=== PATIENT | female | born 1990 | race Hispanic/Latino ===

== ENCOUNTER 2021-04-18 23:02 | Inpatient (IN) | payer MEDICAID, SELFPAY ==
[2021-04-19] MEDS ORDERED: hydrALAZINE 20 MG/ML VIAL SLOW IVP PRN (01:31)
[2021-04-19] MEDS ORDERED: Lorazepam 2 MG/ML VIAL SLOW IVP PRN (01:31)
[2021-04-19] MEDS ORDERED: Ondansetron PF 4 MG/2 ML Vial IVP PRN (01:31)
[2021-04-19] MEDS ORDERED: Promethazine HCl 25 MG/ML VIAL IM PRN ×2 (01:31→12:59)
[2021-04-19] MEDS ORDERED: traMADol HCl 50 MG TAB PO PRN (01:35)
[2021-04-19] MEDS ORDERED: Acetaminophen 325 MG TAB PO SCH (01:45)
[2021-04-19 02:16] VITALS: BMI 32.1
[2021-04-19] MEDS: Morphine 4 MG/ML VIAL SLOW IVP PRN ×2 (02:26→14:59)
[2021-04-19] MEDS: Sodium Chloride 0.9% 1,000 ML IV SCH ×3 (02:26→18:09)
[2021-04-19 02:28] LABS: Hemoglobin 11.8 g/dL (12.0-16.0); Mean Corpuscular HGB CONC 33.4 g/dL (32.0-36.0); Mean Corpuscular Hemoglobin 29.4 pg (27.0-31.0); Mean Corpuscular Volume 88.1 fL (78.0-98.0); Mean Platelet Volume 7.8 fL (7.4-10.4); Platelet Count 280 thou/uL (130-400); RBC Distribution Width 14.5 % (11.5-14.5); Red Blood Cell (RBC) Count 4.01 mill/uL (4.20-5.40); White Blood Cell (WBC) Count 13.4 thou/uL (4.8-10.8)
[2021-04-19 02:36] LABS: PTT 28.8 sec (22.9-36.1); Prothrombin Time 13.4 sec (12.0-14.7)
[2021-04-19] MEDS: Acetaminophen/Codeine 30-300mg Tablet PO SCH ×4 (02:41→20:05)
[2021-04-19] MEDS: Acetaminophen 325 MG TAB PO SCH ×4 (02:42→20:07)
[2021-04-19 02:50] LABS: Lactic Acid 0.8 mmol/L (0.5-2.2)
[2021-04-19 03:01] LABS: ALT (SGPT) 37 U/L (8-55); AST (SGOT) 15 U/L (5-34); Albumin 3.9 g/dL (3.5-5.0); Alkaline Phosphatase 140 U/L (40-110); Anion Gap 15 mmol/L (10-20); BUN (Urea Nitrogen) 11 mg/dL (7.0-18.7); Bilirubin, Total 0.3 mg/dL (0.2-1.2); CRP (Inflammatory) 1.98 mg/dL (= or < 0.5); Calc. Creatinine Clearance 165 mL/min (70-130); Calcium 10.3 mg/dL (7.8-10.44); Carbon Dioxide 21 mmol/L (22-29); Chloride 104 mmol/L (98-107); Globulin 3.6 g/dL (2.4-3.5); Glucose 107 mg/dL (70-105); Magnesium 1.8 mg/dL (1.6-2.6); Phosphorus 4.2 mg/dL (2.3-4.7); Potassium 3.4 mmol/L (3.5-5.1); Protein, Total 7.5 g/dL (6.0-8.3); Sodium 137 mmol/L (136-145)
[2021-04-19 03:37] LABS: Band 9 % (5-11); Eosinophils 2 % (0-10); Lymphocytes 14 % (21-51); MDiff Complete? YES; Monocytes 3 % (0-10); Neutrophil 71 % (42-75); Platelet Morphology Comment Appears Adequate; RBC Morphology Normal
[2021-04-19 04:22] LABS: SARS-CoV-2 NAA Rapid Test Not Detected (NotDetected)
[2021-04-19] MEDS ORDERED: traMADol HCl 50 MG TAB PO SCH (06:00)
[2021-04-19] MEDS: Saccharomyces boulardii 250 MG CAP PO SCH (09:33)
[2021-04-19] MEDS: Polyethylene Glycol 3350 17 GM Packet PO SCH (09:36)
[2021-04-19] MEDS: Senokot S 8.6-50 MG TAB PO SCH ×2 (09:36→20:06)
[2021-04-19] MEDS ORDERED: Potassium Phosphate 30 MMOL in Sodium Chloride 0.9% 250 ML 250 ML IVPB SCH (10:00)
[2021-04-19] MEDS ORDERED: Succinylcholine 200 MG/10 ml SYRINGE FS ONE (11:39)
[2021-04-19] MEDS ORDERED: Lidocaine 1% PF 5 ML VIAL ONE (11:39)
[2021-04-19] MEDS ORDERED: PROPOFOL 200 MG/20 ML VIAL ONE (11:39)
[2021-04-19] MEDS ORDERED: ePHEDrine 50 MG/ML VIAL ONE (11:39)
[2021-04-19] MEDS ORDERED: Heparin 1,000 UNITS/ML VIAL ONE (11:54)
[2021-04-19] MEDS ORDERED: Ondansetron HCl/PF 4 MG/2 ML Vial IVP PRN (12:59)
[2021-04-19] MEDS ORDERED: Promethazine HCl 25 MG/ML VIAL IVPB PRN (12:59)
[2021-04-19] MEDS ORDERED: HYDROmorphone 2 MG/ML VIAL SLOW IVP PRN (12:59)
[2021-04-19] MEDS ORDERED: Fentanyl 100 MCG/2 ML VIAL ONE (13:05)
[2021-04-19] MEDS ORDERED: HYDROmorphone 0.5 MG/0.5 ML SYRINGE ONE (13:16)
[2021-04-19] MEDS ORDERED: Piperacillin/Tazobactam 3.375 GM in Sodium Chloride 0.9% 100 ML IVPB SCH (14:58)
[2021-04-19] MEDS: Cyclobenzaprine 10 MG TAB PO PRN (17:52)
[2021-04-19] MEDS: Ibuprofen 600 MG TAB PO PRN (17:53)
[2021-04-20] MEDS: Cefepime 2 GM in Sodium Chloride 0.9% 100 ML IVPB SCH ×2 (00:44→11:35)
[2021-04-20] MEDS: Ibuprofen 600 MG TAB PO PRN (00:56)
[2021-04-20] MEDS: Vancomycin HCl 1.25 GM in Sodium Chloride 0.9% 250 ML 250 ML IVPB SCH ×2 (01:37→15:59)
[2021-04-20] MEDS: Acetaminophen/Codeine 30-300mg Tablet PO SCH ×4 (01:37→21:17)
[2021-04-20] MEDS: Acetaminophen 325 MG TAB PO SCH ×4 (01:40→21:03)
[2021-04-20] MEDS: Polyethylene Glycol 3350 17 GM Packet PO SCH ×2 (08:39→08:44)
[2021-04-20] MEDS: Saccharomyces boulardii 250 MG CAP PO SCH (08:39)
[2021-04-20] MEDS: Senokot S 8.6-50 MG TAB PO SCH ×2 (08:39→21:04)
[2021-04-20] MEDS ORDERED: Morphine 4 MG/ML VIAL SLOW IVP PRN (08:40)
[2021-04-20] MEDS: Gabapentin 300 MG CAP PO SCH ×3 (09:25→21:02)
[2021-04-20] MEDS: Ketorolac Tromethamine 30 MG/ML VIAL IVP PRN ×3 (11:35→19:16)
[2021-04-20] MEDS ORDERED: traMADol HCl 50 MG TAB PO PRN (14:12)
[2021-04-20] MEDS ORDERED: traMADol HCl 50 MG TAB PO SCH (18:00)
[2021-04-20 23:08] LABS: Vancomycin, Trough 8.2 ug/mL
[2021-04-21] MEDS: Cefepime 2 GM in Sodium Chloride 0.9% 100 ML IVPB SCH ×2 (00:17→19:18)
[2021-04-21] MEDS: Vancomycin HCl 1.25 GM in Sodium Chloride 0.9% 250 ML 250 ML IVPB SCH ×3 (00:26→17:26)
[2021-04-21] MEDS: Ketorolac Tromethamine 30 MG/ML VIAL IVP PRN (00:29)
[2021-04-21] MEDS: Cyclobenzaprine 10 MG TAB PO PRN (00:29)
[2021-04-21] MEDS: Acetaminophen/Codeine 30-300mg Tablet PO SCH ×4 (02:04→20:27)
[2021-04-21] MEDS: Acetaminophen 325 MG TAB PO SCH ×4 (02:04→20:26)
[2021-04-21] MEDS: Ibuprofen 200 MG TAB PO SCH ×3 (05:51→22:56)
[2021-04-21] MEDS: Polyethylene Glycol 3350 17 GM Packet PO SCH (08:17)
[2021-04-21] MEDS: Enoxaparin Sodium 40 MG/0.4 ML SYRINGE SC SCH (08:17)
[2021-04-21] MEDS: Senokot S 8.6-50 MG TAB PO SCH ×2 (08:17→20:28)
[2021-04-21] MEDS: Gabapentin 300 MG CAP PO SCH ×3 (10:08→20:28)
[2021-04-21] MEDS: Saccharomyces boulardii 250 MG CAP PO SCH (10:57)
[2021-04-21] MEDS ORDERED: Fentanyl 100 MCG/2 ML VIAL ONE ×3 (14:06→16:13)
[2021-04-21] MEDS ORDERED: Midazolam HCl 2 mg/2 ml Vial ONE ×2 (14:07→14:21)
[2021-04-21] MEDS ORDERED: Tobramycin Sulfate 1.2 GM VIAL ONE (14:16)
[2021-04-21] MEDS ORDERED: Ketorolac Tromethamine 30 MG/ML VIAL ONE (14:35)
[2021-04-21] MEDS ORDERED: PROPOFOL 200 MG/20 ML VIAL ONE (14:35)
[2021-04-21] MEDS ORDERED: Dexamethasone 20 MG/5 ML VIAL ONE (14:35)
[2021-04-21] MEDS ORDERED: ePHEDrine 50 MG/ML VIAL ONE (14:35)
[2021-04-21] MEDS ORDERED: Ondansetron PF 4 MG/2 ML Vial ONE (14:35)
[2021-04-21] MEDS ORDERED: Promethazine HCl 25 MG/ML VIAL IM PRN (16:22)
[2021-04-21] MEDS ORDERED: Promethazine HCl 25 MG/ML VIAL IVPB PRN (16:22)
[2021-04-21] MEDS ORDERED: HYDROmorphone 2 MG/ML VIAL SLOW IVP PRN (16:22)
[2021-04-21] MEDS ORDERED: Ondansetron HCl/PF 4 MG/2 ML Vial IVP PRN (16:22)
[2021-04-21] MEDS: Morphine 4 MG/ML VIAL SLOW IVP PRN ×2 (19:19→22:56)
[2021-04-22 00:03] LABS: Vancomycin, Trough 11.4 ug/mL
[2021-04-22] MEDS: Cefepime 2 GM in Sodium Chloride 0.9% 100 ML IVPB SCH ×3 (00:14→23:59)
[2021-04-22] MEDS: Vancomycin HCl 1.25 GM in Sodium Chloride 0.9% 250 ML 250 ML IVPB SCH ×4 (00:46→18:33)
[2021-04-22] MEDS: Acetaminophen/Codeine 30-300mg Tablet PO SCH ×4 (02:03→18:33)
[2021-04-22] MEDS: Acetaminophen 325 MG TAB PO SCH ×2 (02:03→08:35)
[2021-04-22] MEDS: Ibuprofen 200 MG TAB PO SCH ×3 (05:36→22:37)
[2021-04-22 05:53] LABS: #Lymphocytes 1.5 thou/uL (1.20-3.40); #Monocytes 0.5 thou/uL (0.11-0.59); #Neutrophils 6.7 thou/uL (1.40-6.50); %Basophils 0.2 % (0.0-1.0); %Eosinophils 0.5 % (0.0-10.0); %Lymphocytes 17.6 % (21.0-51.0); %Monocytes 5.7 % (0.0-10.0); %Neutrophils 76.1 % (42.0-75.0); Hemoglobin 8.8 g/dL (12.0-16.0); Mean Corpuscular HGB CONC 33.1 g/dL (32.0-36.0); Mean Corpuscular Hemoglobin 29.7 pg (27.0-31.0); Mean Corpuscular Volume 89.7 fL (78.0-98.0); Mean Platelet Volume 7.5 fL (7.4-10.4); Platelet Count 393 thou/uL (130-400); RBC Distribution Width 14.4 % (11.5-14.5); Red Blood Cell (RBC) Count 2.96 mill/uL (4.20-5.40); White Blood Cell (WBC) Count 8.7 thou/uL (4.8-10.8)
[2021-04-22 06:23] LABS: Anion Gap 12 mmol/L (10-20); BUN (Urea Nitrogen) 8 mg/dL (7.0-18.7); Calc. Creatinine Clearance 216 mL/min (70-130); Calcium 9.5 mg/dL (7.8-10.44); Carbon Dioxide 24 mmol/L (22-29); Chloride 104 mmol/L (98-107); Glucose 103 mg/dL (70-105); Magnesium 1.8 mg/dL (1.6-2.6); Phosphorus 3.2 mg/dL (2.3-4.7); Potassium 4.1 mmol/L (3.5-5.1); Sodium 136 mmol/L (136-145)
[2021-04-22] MEDS ORDERED: Magnesium Sulfate 3 GM in Sodium Chloride 0.9% 100 ML IV SCH (06:45)
[2021-04-22] MEDS: Saccharomyces boulardii 250 MG CAP PO SCH (08:33)
[2021-04-22] MEDS: Gabapentin 300 MG CAP PO SCH ×3 (08:34→20:38)
[2021-04-22] MEDS: Senokot S 8.6-50 MG TAB PO SCH ×2 (08:34→20:40)
[2021-04-22] MEDS: Polyethylene Glycol 3350 17 GM Packet PO SCH (08:35)
[2021-04-22] MEDS: Enoxaparin Sodium 40 MG/0.4 ML SYRINGE SC SCH (08:35)
[2021-04-22] MEDS ORDERED: FLU VACC QS2021-22(6MOS UP)/PF 60 MCG/0.5 ML SYRINGE IM ONE (09:00)
[2021-04-22] MEDS: Morphine 4 MG/ML VIAL SLOW IVP PRN ×2 (10:39→20:39)
[2021-04-22] MEDS: Cyclobenzaprine 10 MG TAB PO PRN (12:19)
[2021-04-22] MEDS ORDERED: Ketorolac Tromethamine 30 MG/ML VIAL IVP SCH (12:45)
[2021-04-22 18:45] LABS: Vancomycin, Trough 36.6 ug/mL
[2021-04-23] MEDS: Acetaminophen/Codeine 30-300mg Tablet PO SCH ×4 (01:05→18:15)
[2021-04-23] MEDS: Ibuprofen 200 MG TAB PO SCH ×3 (05:32→21:46)
[2021-04-23] MEDS ORDERED: Vancomycin HCl 1.25 GM in Premix Bag 1 BAG IVPB SCH (06:00)
[2021-04-23] MEDS: Gabapentin 300 MG CAP PO SCH ×3 (08:11→21:46)
[2021-04-23] MEDS: Enoxaparin Sodium 40 MG/0.4 ML SYRINGE SC SCH (08:11)
[2021-04-23] MEDS: Polyethylene Glycol 3350 17 GM Packet PO SCH (08:11)
[2021-04-23] MEDS: Saccharomyces boulardii 250 MG CAP PO SCH (08:12)
[2021-04-23] MEDS: Senokot S 8.6-50 MG TAB PO SCH ×3 (08:12→21:51)
[2021-04-23] MEDS: Vancomycin 1 GM in Premix Bag 1 BAG IVPB SCH ×2 (08:12→16:55)
[2021-04-23] MEDS: Morphine 4 MG/ML VIAL SLOW IVP PRN ×2 (12:02→17:03)
[2021-04-23] MEDS: Cefepime 2 GM in Sodium Chloride 0.9% 100 ML IVPB SCH (12:03)
[2021-04-24] MEDS: Vancomycin 1 GM in Premix Bag 1 BAG IVPB SCH ×2 (00:14→08:54)
[2021-04-24] MEDS: Cefepime 2 GM in Sodium Chloride 0.9% 100 ML IVPB SCH ×2 (01:26→11:04)
[2021-04-24] MEDS: Acetaminophen/Codeine 30-300mg Tablet PO SCH ×4 (01:27→17:07)
[2021-04-24] MEDS: Morphine 4 MG/ML VIAL SLOW IVP PRN ×2 (03:35→11:03)
[2021-04-24] MEDS: Ibuprofen 200 MG TAB PO SCH ×3 (05:39→21:51)
[2021-04-24 05:47] LABS: Band 2 % (5-11); Eosinophils 3 % (0-10); Hemoglobin 9.3 g/dL (12.0-16.0); Lymphocytes 28 % (21-51); MDiff Complete? YES; Mean Corpuscular HGB CONC 32.4 g/dL (32.0-36.0); Mean Corpuscular Hemoglobin 28.9 pg (27.0-31.0); Mean Corpuscular Volume 89.1 fL (78.0-98.0); Mean Platelet Volume 7.2 fL (7.4-10.4); Monocytes 5 % (0-10); Myelocyte 1 % (0-0); Neutrophil 61 % (42-75); Platelet Count 490 thou/uL (130-400); Platelet Morphology Comment Appears Increased; RBC Distribution Width 14.6 % (11.5-14.5); RBC Morphology Normal; White Blood Cell (WBC) Count 8.7 thou/uL (4.8-10.8)
[2021-04-24 07:12] LABS: Vancomycin, Trough 12.7 ug/mL
[2021-04-24] MEDS: Saccharomyces boulardii 250 MG CAP PO SCH (08:53)
[2021-04-24] MEDS: Enoxaparin Sodium 40 MG/0.4 ML SYRINGE SC SCH (08:53)
[2021-04-24] MEDS: Gabapentin 300 MG CAP PO SCH ×3 (08:53→20:48)
[2021-04-24] MEDS: Senokot S 8.6-50 MG TAB PO SCH ×2 (08:54→20:48)
[2021-04-24] MEDS: Polyethylene Glycol 3350 17 GM Packet PO SCH (08:54)
[2021-04-24] MEDS: cefTRIAXone\\ROCEPHIN 2 GM in Sodium Chloride 0.9% 100 ML IVPB SCH (13:26)
[2021-04-24 14:14] LABS: Fungus Stain Final report (.)
[2021-04-24] MEDS: Cyclobenzaprine 10 MG TAB PO PRN (17:07)
[2021-04-25] MEDS: Acetaminophen/Codeine 30-300mg Tablet PO SCH ×4 (01:58→18:07)
[2021-04-25] MEDS: Ibuprofen 200 MG TAB PO SCH ×3 (06:19→21:57)
[2021-04-25] MEDS: Senokot S 8.6-50 MG TAB PO SCH ×2 (09:13→21:58)
[2021-04-25] MEDS: Gabapentin 300 MG CAP PO SCH ×3 (09:13→21:57)
[2021-04-25] MEDS: Saccharomyces boulardii 250 MG CAP PO SCH (09:13)
[2021-04-25] MEDS: Enoxaparin Sodium 40 MG/0.4 ML SYRINGE SC SCH (09:14)
[2021-04-25] MEDS: Polyethylene Glycol 3350 17 GM Packet PO SCH (09:15)
[2021-04-25] MEDS: cefTRIAXone\\ROCEPHIN 2 GM in Sodium Chloride 0.9% 100 ML IVPB SCH (13:22)
[2021-04-25] MEDS: Cyclobenzaprine 10 MG TAB PO PRN (14:41)
[2021-04-25] MEDS: Morphine 4 MG/ML VIAL SLOW IVP PRN (14:42)
[2021-04-26] MEDS: Acetaminophen/Codeine 30-300mg Tablet PO SCH ×4 (01:21→18:00)
[2021-04-26] MEDS: Morphine 4 MG/ML VIAL SLOW IVP PRN ×2 (03:44→16:07)
[2021-04-26] MEDS: Ibuprofen 200 MG TAB PO SCH (05:59)
[2021-04-26] MEDS: Gabapentin 300 MG CAP PO SCH ×3 (08:17→21:06)
[2021-04-26] MEDS: Saccharomyces boulardii 250 MG CAP PO SCH (08:17)
[2021-04-26] MEDS: Polyethylene Glycol 3350 17 GM Packet PO SCH (08:17)
[2021-04-26] MEDS: Senokot S 8.6-50 MG TAB PO SCH ×2 (08:17→21:06)
[2021-04-26] MEDS: Enoxaparin Sodium 40 MG/0.4 ML SYRINGE SC SCH (08:17)
[2021-04-26] MEDS: Ketorolac Tromethamine 30 MG/ML VIAL IVP SCH ×2 (13:08→17:59)
[2021-04-26] MEDS: cefTRIAXone\\ROCEPHIN 2 GM in Sodium Chloride 0.9% 100 ML IVPB SCH (13:09)
[2021-04-26 16:38] LABS: Fungus Stain Final report (.)
[2021-04-26] MEDS: tiZANidine HCl 4 MG TAB PO PRN (21:06)
[2021-04-27] MEDS: Ketorolac Tromethamine 30 MG/ML VIAL IVP SCH ×5 (00:42→23:56)
[2021-04-27] MEDS: Acetaminophen/Codeine 30-300mg Tablet PO SCH ×4 (00:43→21:36)
[2021-04-27] MEDS: Enoxaparin Sodium 40 MG/0.4 ML SYRINGE SC SCH (09:04)
[2021-04-27] MEDS: Morphine 4 MG/ML VIAL SLOW IVP PRN (09:05)
[2021-04-27] MEDS: Senokot S 8.6-50 MG TAB PO SCH ×2 (09:06→21:36)
[2021-04-27] MEDS: Saccharomyces boulardii 250 MG CAP PO SCH (09:07)
[2021-04-27] MEDS: Gabapentin 300 MG CAP PO SCH ×3 (09:07→21:36)
[2021-04-27] MEDS: Polyethylene Glycol 3350 17 GM Packet PO SCH (09:07)
[2021-04-27] MEDS: tiZANidine HCl 4 MG TAB PO PRN (11:31)
[2021-04-27] MEDS: cefTRIAXone\\ROCEPHIN 2 GM in Sodium Chloride 0.9% 100 ML IVPB SCH (13:52)
[2021-04-27 19:15] LABS: SARS-CoV-2 PCR by NAA Not Detected (NotDetected)
[2021-04-28] MEDS: Acetaminophen/Codeine 30-300mg Tablet PO SCH ×4 (00:58→17:38)
[2021-04-28] MEDS: Ketorolac Tromethamine 30 MG/ML VIAL IVP SCH ×3 (05:36→17:37)
[2021-04-28] MEDS: Enoxaparin Sodium 40 MG/0.4 ML SYRINGE SC SCH (08:49)
[2021-04-28] MEDS: Saccharomyces boulardii 250 MG CAP PO SCH (08:49)
[2021-04-28] MEDS: Gabapentin 300 MG CAP PO SCH ×3 (08:49→22:39)
[2021-04-28] MEDS: Senokot S 8.6-50 MG TAB PO SCH ×2 (08:49→23:00)
[2021-04-28] MEDS: Polyethylene Glycol 3350 17 GM Packet PO SCH (08:49)
[2021-04-28] MEDS: Morphine 4 MG/ML VIAL SLOW IVP PRN ×2 (09:05→14:59)
[2021-04-28] MEDS: cefTRIAXone\\ROCEPHIN 2 GM in Sodium Chloride 0.9% 100 ML IVPB SCH (12:23)
[2021-04-28] MEDS: tiZANidine HCl 4 MG TAB PO PRN ×2 (14:58→22:39)
[2021-04-29] MEDS: Ketorolac Tromethamine 30 MG/ML VIAL IVP SCH ×3 (00:58→12:56)
[2021-04-29] MEDS: Acetaminophen/Codeine 30-300mg Tablet PO SCH ×4 (00:58→16:48)
[2021-04-29] MEDS ORDERED: Sodium Chloride 0.9% 1,000 ML IV SCH (06:45)
[2021-04-29 08:25] LABS: #Eosinphils 0.4 thou/uL (0.0-0.7); #Lymphocytes 2.1 thou/uL (1.20-3.40); #Monocytes 0.6 thou/uL (0.11-0.59); %Basophils 0.2 % (0.0-1.0); %Eosinophils 5.2 % (0.0-10.0); %Lymphocytes 26.1 % (21.0-51.0); %Neutrophils 61.6 % (42.0-75.0); Mean Corpuscular HGB CONC 31.7 g/dL (32.0-36.0); Mean Corpuscular Hemoglobin 28.6 pg (27.0-31.0); Mean Corpuscular Volume 90.2 fL (78.0-98.0); Mean Platelet Volume 7.3 fL (7.4-10.4); Platelet Count 465 thou/uL (130-400); RBC Distribution Width 15.1 % (11.5-14.5); Red Blood Cell (RBC) Count 3.15 mill/uL (4.20-5.40); White Blood Cell (WBC) Count 8.2 thou/uL (4.8-10.8)
[2021-04-29 08:46] LABS: Anion Gap 14 mmol/L (10-20); BUN (Urea Nitrogen) 10 mg/dL (7.0-18.7); Calc. Creatinine Clearance 189 mL/min (70-130); Calcium 9.2 mg/dL (7.8-10.44); Carbon Dioxide 21 mmol/L (22-29); Chloride 106 mmol/L (98-107); Glucose 95 mg/dL (70-105); Magnesium 1.8 mg/dL (1.6-2.6); Phosphorus 4.2 mg/dL (2.3-4.7); Potassium 3.8 mmol/L (3.5-5.1); Sodium 137 mmol/L (136-145)
[2021-04-29] MEDS: Senokot S 8.6-50 MG TAB PO SCH ×2 (09:45→21:49)
[2021-04-29] MEDS: Ferrous Sulfate 325 MG TAB PO SCH ×2 (09:45→21:49)
[2021-04-29] MEDS: Gabapentin 300 MG CAP PO SCH ×3 (09:45→21:47)
[2021-04-29] MEDS: Enoxaparin Sodium 40 MG/0.4 ML SYRINGE SC SCH (09:45)
[2021-04-29] MEDS: Saccharomyces boulardii 250 MG CAP PO SCH (09:45)
[2021-04-29] MEDS: Ascorbic Acid 500 mg Chewable Tablet PO SCH ×2 (09:45→21:49)
[2021-04-29] MEDS: tiZANidine HCl 4 MG TAB PO PRN ×2 (09:45→21:48)
[2021-04-29] MEDS: Polyethylene Glycol 3350 17 GM Packet PO SCH (09:49)
[2021-04-29] MEDS: Morphine 4 MG/ML VIAL SLOW IVP PRN (10:59)
[2021-04-29] MEDS: cefTRIAXone\\ROCEPHIN 2 GM in Sodium Chloride 0.9% 100 ML IVPB SCH (12:55)
[2021-04-30] MEDS: Morphine 4 MG/ML VIAL SLOW IVP PRN ×3 (00:01→09:53)
[2021-04-30] MEDS: Acetaminophen/Codeine 30-300mg Tablet PO SCH ×5 (00:03→23:31)
[2021-04-30] MEDS ORDERED: Morphine 4 MG/ML VIAL SLOW IVP SCH (01:45)
[2021-04-30] MEDS: tiZANidine HCl 4 MG TAB PO PRN (05:59)
[2021-04-30] MEDS: Ascorbic Acid 500 mg Chewable Tablet PO SCH ×2 (08:57→19:40)
[2021-04-30] MEDS: Ferrous Sulfate 325 MG TAB PO SCH ×2 (08:57→19:39)
[2021-04-30] MEDS: Saccharomyces boulardii 250 MG CAP PO SCH (08:57)
[2021-04-30] MEDS: Gabapentin 300 MG CAP PO SCH ×3 (08:57→19:39)
[2021-04-30] MEDS: Enoxaparin Sodium 40 MG/0.4 ML SYRINGE SC SCH (08:58)
[2021-04-30] MEDS: Polyethylene Glycol 3350 17 GM Packet PO SCH (08:58)
[2021-04-30] MEDS: Senokot S 8.6-50 MG TAB PO SCH ×2 (08:58→19:39)
[2021-04-30] MEDS ORDERED: Melatonin 3 MG TAB PO PRN (10:06)
[2021-04-30] MEDS: Acetaminophen 500 MG TAB PO SCH ×3 (11:05→19:39)
[2021-04-30] MEDS: traMADol HCl 50 MG TAB PO SCH ×3 (11:08→19:40)
[2021-04-30] MEDS: Ibuprofen 200 MG TAB PO SCH ×2 (13:21→19:39)
[2021-04-30] MEDS: cefTRIAXone\\ROCEPHIN 2 GM in Sodium Chloride 0.9% 100 ML IVPB SCH (13:22)
[2021-05-01] MEDS: Acetaminophen 500 MG TAB PO SCH (03:34)
[2021-05-01] MEDS: traMADol HCl 50 MG TAB PO SCH ×4 (03:34→21:41)
[2021-05-01] MEDS: Ibuprofen 200 MG TAB PO SCH ×3 (06:03→21:41)
[2021-05-01] MEDS: Acetaminophen/Codeine 30-300mg Tablet PO SCH ×4 (06:03→23:45)
[2021-05-01] MEDS: Ascorbic Acid 500 mg Chewable Tablet PO SCH ×2 (09:38→20:44)
[2021-05-01] MEDS: Gabapentin 300 MG CAP PO SCH ×3 (09:38→20:43)
[2021-05-01] MEDS: Polyethylene Glycol 3350 17 GM Packet PO SCH (09:40)
[2021-05-01] MEDS: Saccharomyces boulardii 250 MG CAP PO SCH (09:40)
[2021-05-01] MEDS: Enoxaparin Sodium 40 MG/0.4 ML SYRINGE SC SCH (09:40)
[2021-05-01] MEDS: Ferrous Sulfate 325 MG TAB PO SCH ×2 (09:40→20:44)
[2021-05-01] MEDS: Acetaminophen 325 MG TAB PO SCH ×3 (09:41→21:42)
[2021-05-01] MEDS: cefTRIAXone\\ROCEPHIN 2 GM in Sodium Chloride 0.9% 100 ML IVPB SCH (11:49)
[2021-05-01] MEDS: Senokot S 8.6-50 MG TAB PO SCH (20:44)
[2021-05-02] MEDS: Acetaminophen 325 MG TAB PO SCH ×4 (05:10→21:16)
[2021-05-02] MEDS: traMADol HCl 50 MG TAB PO SCH ×4 (05:11→21:15)
[2021-05-02] MEDS: Acetaminophen/Codeine 30-300mg Tablet PO SCH ×4 (06:22→23:48)
[2021-05-02] MEDS: Ibuprofen 200 MG TAB PO SCH ×3 (06:23→21:16)
[2021-05-02] MEDS ORDERED: ceFAZolin 2 GM/Dextrose 50 ML 2 GM in Premix Bag 1 BAG IVPB SCH (07:45)
[2021-05-02] MEDS: Ascorbic Acid 500 mg Chewable Tablet PO SCH ×2 (08:08→20:44)
[2021-05-02] MEDS: Polyethylene Glycol 3350 17 GM Packet PO SCH (08:08)
[2021-05-02] MEDS: Saccharomyces boulardii 250 MG CAP PO SCH (08:08)
[2021-05-02] MEDS: Senokot S 8.6-50 MG TAB PO SCH ×2 (08:08→20:44)
[2021-05-02] MEDS: Ferrous Sulfate 325 MG TAB PO SCH ×2 (08:08→20:44)
[2021-05-02] MEDS: Enoxaparin Sodium 40 MG/0.4 ML SYRINGE SC SCH (08:08)
[2021-05-02] MEDS: Gabapentin 300 MG CAP PO SCH ×3 (08:09→20:44)
[2021-05-02] MEDS ORDERED: ceFAZolin 2 GM/DEX 5% 100 ML BAG ONE ×2 (11:44)
[2021-05-02] MEDS ORDERED: Fentanyl 100 MCG/2 ML VIAL ONE ×2 (13:18→14:55)
[2021-05-02] MEDS ORDERED: Midazolam HCl 2 mg/2 ml Vial ONE (13:18)
[2021-05-02] MEDS ORDERED: Lidocaine 1% PF 5 ML VIAL ONE (13:30)
[2021-05-02] MEDS ORDERED: PROPOFOL 200 MG/20 ML VIAL ONE (13:30)
[2021-05-02] MEDS ORDERED: Ondansetron PF 4 MG/2 ML Vial ONE (13:30)
[2021-05-02] MEDS ORDERED: Sodium Chloride 0.9% 100 ML ONE (15:05)
[2021-05-02] MEDS ORDERED: cefTRIAXone\\ROCEPHIN 2 GM VIAL ONE (15:05)
[2021-05-02] MEDS: cefTRIAXone\\ROCEPHIN 2 GM in Sodium Chloride 0.9% 100 ML IVPB SCH (15:09)
[2021-05-02 17:02] LABS: Hemoglobin 8.4 g/dL (12.0-16.0); Mean Corpuscular Hemoglobin 29.5 pg (27.0-31.0); Mean Corpuscular Volume 89.5 fL (78.0-98.0); Mean Platelet Volume 7.5 fL (7.4-10.4); Platelet Count 388 thou/uL (130-400); RBC Distribution Width 14.8 % (11.5-14.5); Red Blood Cell (RBC) Count 2.83 mill/uL (4.20-5.40); White Blood Cell (WBC) Count 7.6 thou/uL (4.8-10.8)
[2021-05-03] MEDS: Acetaminophen 325 MG TAB PO SCH ×4 (03:27→21:33)
[2021-05-03] MEDS: traMADol HCl 50 MG TAB PO SCH ×4 (03:27→21:32)
[2021-05-03] MEDS: Ibuprofen 200 MG TAB PO SCH ×3 (06:00→21:32)
[2021-05-03] MEDS: Acetaminophen/Codeine 30-300mg Tablet PO SCH ×4 (06:00→23:41)
[2021-05-03] MEDS: Enoxaparin Sodium 40 MG/0.4 ML SYRINGE SC SCH (09:12)
[2021-05-03] MEDS: Ferrous Sulfate 325 MG TAB PO SCH ×2 (09:13→20:43)
[2021-05-03] MEDS: Ascorbic Acid 500 mg Chewable Tablet PO SCH ×2 (09:13→20:43)
[2021-05-03] MEDS: Gabapentin 300 MG CAP PO SCH ×3 (09:14→20:43)
[2021-05-03] MEDS: Senokot S 8.6-50 MG TAB PO SCH ×2 (09:15→20:43)
[2021-05-03] MEDS: Saccharomyces boulardii 250 MG CAP PO SCH (09:15)
[2021-05-03] MEDS: Polyethylene Glycol 3350 17 GM Packet PO SCH (09:16)
[2021-05-03] MEDS: cefTRIAXone\\ROCEPHIN 2 GM in Sodium Chloride 0.9% 100 ML IVPB SCH (12:20)
[2021-05-04] MEDS: Acetaminophen 325 MG TAB PO SCH ×4 (04:02→22:46)
[2021-05-04] MEDS: traMADol HCl 50 MG TAB PO SCH ×3 (04:02→17:11)
[2021-05-04] MEDS: Acetaminophen/Codeine 30-300mg Tablet PO SCH ×3 (06:25→19:24)
[2021-05-04] MEDS: Ibuprofen 200 MG TAB PO SCH ×3 (06:26→22:49)
[2021-05-04] MEDS: Polyethylene Glycol 3350 17 GM Packet PO SCH (09:59)
[2021-05-04] MEDS: Ascorbic Acid 500 mg Chewable Tablet PO SCH ×2 (09:59→22:47)
[2021-05-04] MEDS: Saccharomyces boulardii 250 MG CAP PO SCH (09:59)
[2021-05-04] MEDS: Enoxaparin Sodium 40 MG/0.4 ML SYRINGE SC SCH (09:59)
[2021-05-04] MEDS: Senokot S 8.6-50 MG TAB PO SCH ×2 (09:59→22:48)
[2021-05-04] MEDS: Ferrous Sulfate 325 MG TAB PO SCH ×2 (10:00→22:48)
[2021-05-04] MEDS: Gabapentin 300 MG CAP PO SCH ×3 (10:01→22:44)
[2021-05-04] MEDS: cefTRIAXone\\ROCEPHIN 2 GM in Sodium Chloride 0.9% 100 ML IVPB SCH (14:40)
[2021-05-05] MEDS: Acetaminophen/Codeine 30-300mg Tablet PO SCH ×4 (00:49→18:08)
[2021-05-05] MEDS: traMADol HCl 50 MG TAB PO SCH ×6 (00:59→23:23)
[2021-05-05] MEDS: Acetaminophen 325 MG TAB PO SCH ×4 (04:42→23:22)
[2021-05-05] MEDS: Ibuprofen 200 MG TAB PO SCH ×3 (06:16→23:24)
[2021-05-05] MEDS: Saccharomyces boulardii 250 MG CAP PO SCH (08:48)
[2021-05-05] MEDS: Gabapentin 300 MG CAP PO SCH ×3 (08:48→23:25)
[2021-05-05] MEDS: Ascorbic Acid 500 mg Chewable Tablet PO SCH ×2 (08:48→23:24)
[2021-05-05] MEDS: Senokot S 8.6-50 MG TAB PO SCH ×2 (08:48→23:25)
[2021-05-05] MEDS: Enoxaparin Sodium 40 MG/0.4 ML SYRINGE SC SCH (08:49)
[2021-05-05] MEDS: Ferrous Sulfate 325 MG TAB PO SCH ×2 (08:49→23:23)
[2021-05-05] MEDS: Polyethylene Glycol 3350 17 GM Packet PO SCH (08:50)
[2021-05-05] MEDS: cefTRIAXone\\ROCEPHIN 2 GM in Sodium Chloride 0.9% 100 ML IVPB SCH (12:12)
[2021-05-05 17:09] LABS: SARS-CoV-2 PCR by NAA DETECTED (NotDetected)
[2021-05-06] MEDS: Acetaminophen/Codeine 30-300mg Tablet PO SCH ×4 (02:00→17:45)
[2021-05-06] MEDS: traMADol HCl 50 MG TAB PO SCH ×4 (04:32→21:11)
[2021-05-06] MEDS: Acetaminophen 325 MG TAB PO SCH ×4 (04:33→21:10)
[2021-05-06] MEDS: Ibuprofen 200 MG TAB PO SCH ×3 (06:35→21:10)
[2021-05-06] MEDS: Enoxaparin Sodium 40 MG/0.4 ML SYRINGE SC SCH (08:59)
[2021-05-06] MEDS: Senokot S 8.6-50 MG TAB PO SCH ×2 (08:59→21:10)
[2021-05-06] MEDS: Zinc Sulfate 220 MG CAP PO SCH (09:00)
[2021-05-06] MEDS: Saccharomyces boulardii 250 MG CAP PO SCH (09:00)
[2021-05-06] MEDS: Ascorbic Acid 500 mg Chewable Tablet PO SCH ×2 (09:00→21:07)
[2021-05-06] MEDS: Gabapentin 300 MG CAP PO SCH ×3 (09:00→21:09)
[2021-05-06] MEDS: Ferrous Sulfate 325 MG TAB PO SCH ×2 (09:00→21:08)
[2021-05-06] MEDS: Polyethylene Glycol 3350 17 GM Packet PO SCH ×2 (09:01→09:12)
[2021-05-06 11:13] LABS: Fungus Stain Final report (.)
[2021-05-06] MEDS: cefTRIAXone\\ROCEPHIN 2 GM in Sodium Chloride 0.9% 100 ML IVPB SCH (11:42)
[2021-05-06] MEDS: tiZANidine HCl 4 MG TAB PO PRN (15:53)
[2021-05-07] MEDS: Acetaminophen/Codeine 30-300mg Tablet PO SCH ×4 (00:27→17:32)
[2021-05-07] MEDS: traMADol HCl 50 MG TAB PO SCH ×4 (03:49→21:40)
[2021-05-07] MEDS: Acetaminophen 325 MG TAB PO SCH ×4 (03:50→21:39)
[2021-05-07] MEDS: Ibuprofen 200 MG TAB PO SCH ×3 (06:10→21:40)
[2021-05-07] MEDS: Ascorbic Acid 500 mg Chewable Tablet PO SCH ×2 (08:21→21:38)
[2021-05-07] MEDS: Ferrous Sulfate 325 MG TAB PO SCH ×2 (08:21→21:39)
[2021-05-07] MEDS: Zinc Sulfate 220 MG CAP PO SCH (08:21)
[2021-05-07] MEDS: Saccharomyces boulardii 250 MG CAP PO SCH (08:22)
[2021-05-07] MEDS: Enoxaparin Sodium 40 MG/0.4 ML SYRINGE SC SCH (08:22)
[2021-05-07] MEDS: Gabapentin 300 MG CAP PO SCH ×3 (08:23→21:39)
[2021-05-07] MEDS: Polyethylene Glycol 3350 17 GM Packet PO SCH (08:23)
[2021-05-07] MEDS: Senokot S 8.6-50 MG TAB PO SCH ×2 (08:23→21:39)
[2021-05-07] MEDS: cefTRIAXone\\ROCEPHIN 2 GM in Sodium Chloride 0.9% 100 ML IVPB SCH (11:59)
[2021-05-07] MEDS: tiZANidine HCl 4 MG TAB PO PRN (13:35)
[2021-05-08] MEDS: Acetaminophen/Codeine 30-300mg Tablet PO SCH ×3 (01:05→11:57)
[2021-05-08] MEDS: Ibuprofen 200 MG TAB PO SCH ×2 (04:48→13:44)
[2021-05-08] MEDS: Acetaminophen 325 MG TAB PO SCH ×3 (04:48→16:46)
[2021-05-08] MEDS: traMADol HCl 50 MG TAB PO SCH ×3 (04:49→16:46)
[2021-05-08] MEDS: Senokot S 8.6-50 MG TAB PO SCH (09:33)
[2021-05-08] MEDS: Ascorbic Acid 500 mg Chewable Tablet PO SCH (09:33)
[2021-05-08] MEDS: Ferrous Sulfate 325 MG TAB PO SCH (09:33)
[2021-05-08] MEDS: Zinc Sulfate 220 MG CAP PO SCH (09:33)
[2021-05-08] MEDS: Saccharomyces boulardii 250 MG CAP PO SCH (09:33)
[2021-05-08] MEDS: Polyethylene Glycol 3350 17 GM Packet PO SCH (09:33)
[2021-05-08] MEDS: Enoxaparin Sodium 40 MG/0.4 ML SYRINGE SC SCH (09:34)
[2021-05-08] MEDS: Gabapentin 300 MG CAP PO SCH ×2 (09:34→13:43)
[2021-05-08] MEDS: cefTRIAXone\\ROCEPHIN 2 GM in Sodium Chloride 0.9% 100 ML IVPB SCH (11:58)
[2021-05-08] MEDS ORDERED: Lorazepam 0.5 MG TAB PO PRN (13:35)
[2021-05-08 15:36] VITALS: BP 101/57; TEMP 98.2
[2021-05-08] MEDS ORDERED: cefTRIAXone\\ROCEPHIN 2 GM VIAL IM SCH (17:30)
[2021-05-20 08:37] LABS: Fungus Culture Final report (.)
[2021-05-20 08:37] LABS: Fungus Culture Final report (.)
[2021-05-31 08:16] LABS: Fungus Culture Final report (.); Fungus Culture Result 1 Candida albicans (.)
== END 2021-05-08 18:00 | disposition home or self-care (01) | DRG 498 ==
LOC: SURG A 04-19 01:21
PROVIDERS: ADMIT Surgery; ATTEND Surgery
PROC: 0Q960ZZ Drainage of Right Upper Femur, Open Approach (ICD-10-PCS; principal; 2021-04-19)
PROC: 0YH Anatomical Regions, Lower Extremities, Insertion (ICD-10-PCS; 2021-04-19)
PROC: 0Q960ZZ Drainage of Right Upper Femur, Open Approach (ICD-10-PCS; 2021-04-21)
PROC: 02HV33Z Insertion of Infusion Device into Superior Vena Cava, Percutaneous Approach (ICD-10-PCS; 2021-04-22)
PROC: B548ZZA Ultrasonography of Superior Vena Cava, Guidance (ICD-10-PCS; 2021-04-22)
PROC: 0Q960ZZ Drainage of Right Upper Femur, Open Approach (ICD-10-PCS; 2021-05-02)
DX: T84.620A Infection and inflammatory reaction due to internal fixation device of right femur, initial encounter (principal); U07.1 COVID-19; T81.49XA Infection following a procedure, other surgical site, initial encounter; M86.151 Other acute osteomyelitis, right femur; Y83.8 Other surgical procedures as the cause of abnormal reaction of the patient, or of later complication, without mention of misadventure at the time of the procedure; Z20.822 Contact with and (suspected) exposure to COVID-19
CPT/HCPCS: 36415; 36569; 71045; 80048; 80053; 80202; 83605; 83735; 84100; 84702; 85007; 85025; 85027; 85610; 85652; 85730; 86140; 86850; 86900; 86901; 87070; 87076; 87102; 87116; 87205; 87206; C1713; C1751; J0692; J0696; J1100; J1170; J1644; J1650; J1885; J2250; J2270; J2405; J2704; J3010; J3260; J3370; J3475; J3490; J7050; U0002; U0003; U0005

== ENCOUNTER 2021-06-08 09:45 | Emergency (ER) | payer MEDICAID, SELFPAY | END 2021-06-08 11:02 | disposition home or self-care (01) | LOC: ERS 09:45 | DX: T81.49XA Infection following a procedure, other surgical site, initial encounter (principal) | CPT/HCPCS: 99282 ==

== ENCOUNTER 2021-06-11 21:55 | Inpatient (IN) | payer OTHER, MEDICAID ==
[2021-06-12 00:48] LABS: #Eosinphils 0.3 thou/uL (0.0-0.7); #Lymphocytes 2.8 thou/uL (1.20-3.40); #Monocytes 0.7 thou/uL (0.11-0.59); #Neutrophils 6.8 thou/uL (1.40-6.50); %Basophils 0.4 % (0.0-1.0); %Eosinophils 2.6 % (0.0-10.0); %Lymphocytes 26.5 % (21.0-51.0); %Monocytes 6.2 % (0.0-10.0); %Neutrophils 64.2 % (42.0-75.0); Hemoglobin 10.3 g/dL (12.0-16.0); Mean Corpuscular HGB CONC 31.7 g/dL (32.0-36.0); Mean Corpuscular Hemoglobin 26.6 pg (27.0-31.0); Mean Corpuscular Volume 84.1 fL (78.0-98.0); Mean Platelet Volume 7.6 fL (7.4-10.4); Platelet Count 480 thou/uL (130-400); Red Blood Cell (RBC) Count 3.87 mill/uL (4.20-5.40); White Blood Cell (WBC) Count 10.6 thou/uL (4.8-10.8)
[2021-06-12 01:07] LABS: ALT (SGPT) 14 U/L (8-55); AST (SGOT) 12 U/L (5-34); Albumin 3.9 g/dL (3.5-5.0); Alkaline Phosphatase 98 U/L (40-110); Anion Gap 14 mmol/L (10-20); BUN (Urea Nitrogen) 5 mg/dL (7.0-18.7); Bilirubin, Total 0.2 mg/dL (0.2-1.2); Calc. Creatinine Clearance 0 mL/min (70-130); Calcium 9.6 mg/dL (7.8-10.44); Carbon Dioxide 24 mmol/L (22-29); Chloride 103 mmol/L (98-107); Globulin 3.4 g/dL (2.4-3.5); Glucose 91 mg/dL (70-105); Potassium 3.6 mmol/L (3.5-5.1); Protein, Total 7.3 g/dL (6.0-8.3); Sodium 137 mmol/L (136-145)
[2021-06-12] MEDS ORDERED: Ondansetron PF 4 MG/2 ML Vial ONE ×2 (02:39→09:48)
[2021-06-12] MEDS ORDERED: Morphine 4 MG/ML VIAL ONE (02:39)
[2021-06-12 03:28] VITALS: BMI 25.6
[2021-06-12] MEDS: Sodium Chloride 0.9% 1,000 ML IV SCH ×2 (03:46→09:01)
[2021-06-12] MEDS ORDERED: Vancomycin HCl 1.5 GM in Sodium Chloride 0.9% 250 ML 300 ML IVPB SCH (07:45)
[2021-06-12] MEDS ORDERED: cefTRIAXone\\ROCEPHIN 1 GM in Sodium Chloride 0.9% 100 ML IVPB SCH (08:00)
[2021-06-12] MEDS ORDERED: Fentanyl 100 MCG/2 ML VIAL ONE ×4 (09:14→13:53)
[2021-06-12] MEDS ORDERED: Midazolam HCl 2 mg/2 ml Vial ONE (09:14)
[2021-06-12] MEDS ORDERED: HYDROmorphone 0.5 MG/0.5 ML SYRINGE ONE (09:15)
[2021-06-12] MEDS ORDERED: cefTRIAXone\\ROCEPHIN 1 GM VIAL ONE (09:27)
[2021-06-12] MEDS ORDERED: Sodium Chloride 0.9% 100 ML ONE (09:27)
[2021-06-12] MEDS ORDERED: Dexamethasone 20 MG/5 ML VIAL ONE (09:48)
[2021-06-12] MEDS ORDERED: Glycopyrrolate 0.2 MG/ML 5 ML SYRINGE ONE (09:48)
[2021-06-12] MEDS ORDERED: Rocuronium Bromide 10 MG/ML (10ML VIAL) ONE (09:48)
[2021-06-12] MEDS ORDERED: PROPOFOL 200 MG/20 ML VIAL ONE (09:48)
[2021-06-12] MEDS ORDERED: Lidocaine 1% PF 5 ML VIAL ONE (09:48)
[2021-06-12] MEDS ORDERED: PHENYLEPHRINE-NS 100 MCG/ML 10 ML SYRINGE ONE (09:48)
[2021-06-12] MEDS ORDERED: Tobramycin Sulfate 1.2 GM VIAL ONE (10:16)
[2021-06-12] MEDS ORDERED: Mineral Oil Sterile 10 ML VIAL ONE (10:25)
[2021-06-12 10:51] LABS: SARS-CoV-2 PCR by NAA Not Detected (NotDetected)
[2021-06-12] MEDS ORDERED: Phenylephrine 10 MG/ML VIAL ONE (11:42)
[2021-06-12] MEDS ORDERED: Bisacodyl 10 MG SUPP PR PRN (13:51)
[2021-06-12] MEDS ORDERED: TETANUS AND DIPHTHERIA TOX/PF 0.5 ML DISP.SYRIN IM SCH (13:51)
[2021-06-12] MEDS ORDERED: HYDROcodone/Acetaminophen 10/325 mg Tablet PO PRN (13:51)
[2021-06-12] MEDS ORDERED: Communication Order-Pharmacy FS SCH (13:51)
[2021-06-12] MEDS ORDERED: Ondansetron PF 4 MG/2 ML Vial SLOW IVP PRN (13:51)
[2021-06-12] MEDS ORDERED: traMADol HCl 50 MG TAB PO PRN (13:51)
[2021-06-12] MEDS ORDERED: Fentanyl 100 MCG/2 ML VIAL SLOW IVP PRN (13:51)
[2021-06-12] MEDS ORDERED: Promethazine HCl 25 MG/ML VIAL IM PRN (13:51)
[2021-06-12] MEDS ORDERED: Heparin 1,000 UNITS/ML VIAL ONE (13:57)
[2021-06-12] MEDS ORDERED: Pharmacy to Dose ABXS IVPB PRN (14:05)
[2021-06-12] MEDS: Ketorolac Tromethamine 30 MG/ML VIAL IVP SCH ×2 (14:44→18:14)
[2021-06-12] MEDS: HYDROcodone/Acetaminophen 10/325 mg Tablet PO PRN ×2 (15:42→21:14)
[2021-06-12] MEDS: Vancomycin 1 GM in Premix Bag 1 BAG IVPB SCH (21:13)
[2021-06-12] MEDS: Aspirin 81 mg Enteric Coated Tablet PO SCH (21:14)
[2021-06-13] MEDS: Ketorolac Tromethamine 30 MG/ML VIAL IVP SCH ×5 (00:07→18:43)
[2021-06-13] MEDS: Morphine 4 MG/ML VIAL SLOW IVP PRN ×3 (00:07→21:55)
[2021-06-13] MEDS: HYDROcodone/Acetaminophen 10/325 mg Tablet PO PRN ×3 (03:42→20:23)
[2021-06-13 06:53] LABS: #Lymphocytes 1.6 thou/uL (1.20-3.40); #Monocytes 0.9 thou/uL (0.11-0.59); #Neutrophils 6.8 thou/uL (1.40-6.50); %Basophils 0.1 % (0.0-1.0); %Eosinophils 0.1 % (0.0-10.0); %Lymphocytes 17.5 % (21.0-51.0); %Monocytes 9.5 % (0.0-10.0); %Neutrophils 72.8 % (42.0-75.0); Hemoglobin 6.9 g/dL (12.0-16.0); Mean Corpuscular HGB CONC 33.1 g/dL (32.0-36.0); Mean Corpuscular Volume 84.7 fL (78.0-98.0); Mean Platelet Volume 7.6 fL (7.4-10.4); Platelet Count 381 thou/uL (130-400); Red Blood Cell (RBC) Count 2.45 mill/uL (4.20-5.40); White Blood Cell (WBC) Count 9.4 thou/uL (4.8-10.8)
[2021-06-13 06:56] LABS: ALT (SGPT) 12 U/L (8-55); AST (SGOT) 11 U/L (5-34); Albumin 2.9 g/dL (3.5-5.0); Alkaline Phosphatase 66 U/L (40-110); Anion Gap 13 mmol/L (10-20); BUN (Urea Nitrogen) 6 mg/dL (7.0-18.7); Bilirubin, Total 0.2 mg/dL (0.2-1.2); Calc. Creatinine Clearance 133 mL/min (70-130); Calcium 8.6 mg/dL (7.8-10.44); Carbon Dioxide 26 mmol/L (22-29); Chloride 101 mmol/L (98-107); Globulin 2.4 g/dL (2.4-3.5); Glucose 125 mg/dL (70-105); Potassium 3.8 mmol/L (3.5-5.1); Protein, Total 5.3 g/dL (6.0-8.3); Sodium 136 mmol/L (136-145)
[2021-06-13] MEDS: cefTRIAXone\\ROCEPHIN 2 GM in Sodium Chloride 0.9% 100 ML IVPB SCH (09:00)
[2021-06-13] MEDS: Aspirin 81 mg Enteric Coated Tablet PO SCH ×2 (09:00→20:23)
[2021-06-13] MEDS: Acetaminophen 325 MG TAB PO PRN (09:10)
[2021-06-13] MEDS: Vancomycin 1 GM in Premix Bag 1 BAG IVPB SCH (10:18)
[2021-06-13 16:27] LABS: #Eosinphils 0.1 thou/uL (0.0-0.7); #Monocytes 0.9 thou/uL (0.11-0.59); #Neutrophils 5.8 thou/uL (1.40-6.50); %Basophils 0.5 % (0.0-1.0); %Eosinophils 0.9 % (0.0-10.0); %Lymphocytes 22.7 % (21.0-51.0); %Monocytes 9.7 % (0.0-10.0); %Neutrophils 66.2 % (42.0-75.0); Hemoglobin 7.6 g/dL (12.0-16.0); Mean Corpuscular HGB CONC 33.3 g/dL (32.0-36.0); Mean Corpuscular Hemoglobin 28.7 pg (27.0-31.0); Mean Corpuscular Volume 86.3 fL (78.0-98.0); Mean Platelet Volume 7.1 fL (7.4-10.4); Platelet Count 339 thou/uL (130-400); RBC Distribution Width 13.7 % (11.5-14.5); Red Blood Cell (RBC) Count 2.63 mill/uL (4.20-5.40); White Blood Cell (WBC) Count 8.8 thou/uL (4.8-10.8)
[2021-06-13] MEDS ORDERED: Ketorolac Tromethamine 30 MG/ML VIAL IVP SCH (16:30)
[2021-06-13] MEDS ORDERED: Sodium Chloride 0.9% 1,000 ML IV SCH (16:30)
[2021-06-13 16:45] LABS: Anion Gap 11 mmol/L (10-20); BUN (Urea Nitrogen) 6 mg/dL (7.0-18.7); Calc. Creatinine Clearance 155 mL/min (70-130); Calcium 8.3 mg/dL (7.8-10.44); Carbon Dioxide 28 mmol/L (22-29); Chloride 101 mmol/L (98-107); Glucose 102 mg/dL (70-105); Potassium 3.6 mmol/L (3.5-5.1); Sodium 136 mmol/L (136-145)
[2021-06-14] MEDS: HYDROcodone/Acetaminophen 10/325 mg Tablet PO PRN ×5 (03:12→20:24)
[2021-06-14] MEDS: Morphine 4 MG/ML VIAL SLOW IVP PRN ×3 (06:23→18:01)
[2021-06-14] MEDS: cefTRIAXone\\ROCEPHIN 2 GM in Sodium Chloride 0.9% 100 ML IVPB SCH (08:26)
[2021-06-14] MEDS: Aspirin 81 mg Enteric Coated Tablet PO SCH ×2 (08:26→20:24)
[2021-06-14 09:49] LABS: Vancomycin, Trough Less than 1.1 ug/mL
[2021-06-14] MEDS ORDERED: Vancomycin HCl 1.25 GM in Sodium Chloride 0.9% 250 ML 250 ML IVPB SCH (10:30)
[2021-06-14 12:04] LABS: Actual Bicarbonate (HCO3a) 19.1 mEq/L (22-28); Analyzer IN Cardio OR; Base Excess (BEa) -5.2 mEq/L (-2.0 to +3.0); Calcium, Ionized (arterial) 1.17 mmol/L (1.12-1.30); Carboxyhemoglobin (COHb) 0.3 gm% (0.0-3.0); Hemoglobin (Hb) 8.8 g/dL (12.0-16.0); O2 Tension (PaO2), arterial 193.1 mmHg (80.0-100.0); Potassium - ABG Lab 3.63 mmol/L (3.70-5.30); Puncture Site Arterial Line; pH, Arterial 7.39 (7.35-7.45)
[2021-06-14] MEDS: Vancomycin HCl 1.25 GM in Sodium Chloride 0.9% 250 ML 250 ML IVPB SCH (23:30)
[2021-06-15] MEDS: Morphine 4 MG/ML VIAL SLOW IVP PRN ×3 (01:09→18:38)
[2021-06-15 05:27] LABS: #Eosinphils 0.3 thou/uL (0.0-0.7); #Lymphocytes 2.1 thou/uL (1.20-3.40); #Monocytes 0.7 thou/uL (0.11-0.59); #Neutrophils 5.9 thou/uL (1.40-6.50); %Basophils 0.2 % (0.0-1.0); %Eosinophils 3.3 % (0.0-10.0); %Lymphocytes 22.9 % (21.0-51.0); %Monocytes 7.9 % (0.0-10.0); %Neutrophils 65.7 % (42.0-75.0); Hemoglobin 9.2 g/dL (12.0-16.0); Mean Corpuscular HGB CONC 32.6 g/dL (32.0-36.0); Mean Corpuscular Hemoglobin 28.8 pg (27.0-31.0); Mean Corpuscular Volume 88.3 fL (78.0-98.0); Mean Platelet Volume 7.1 fL (7.4-10.4); Platelet Count 376 thou/uL (130-400); RBC Distribution Width 13.8 % (11.5-14.5); Red Blood Cell (RBC) Count 3.18 mill/uL (4.20-5.40); White Blood Cell (WBC) Count 8.9 thou/uL (4.8-10.8)
[2021-06-15] MEDS: HYDROcodone/Acetaminophen 10/325 mg Tablet PO PRN ×3 (05:56→20:03)
[2021-06-15] MEDS: Aspirin 81 mg Enteric Coated Tablet PO SCH ×2 (08:52→20:05)
[2021-06-15] MEDS: cefTRIAXone\\ROCEPHIN 2 GM in Sodium Chloride 0.9% 100 ML IVPB SCH (08:53)
[2021-06-15 12:44] LABS: Vancomycin, Trough 4.8 ug/mL
[2021-06-15] MEDS: Vancomycin HCl 1.25 GM in Sodium Chloride 0.9% 250 ML 250 ML IVPB SCH (13:12)
[2021-06-15] MEDS: Vancomycin 1 GM in Premix Bag 1 BAG IVPB SCH ×2 (13:14→20:06)
[2021-06-15] MEDS: traMADol HCl 50 MG TAB PO PRN (14:31)
[2021-06-16] MEDS: HYDROcodone/Acetaminophen 10/325 mg Tablet PO PRN ×4 (00:09→21:01)
[2021-06-16] MEDS: Acetaminophen 325 MG TAB PO PRN ×2 (02:06→12:26)
[2021-06-16] MEDS: Vancomycin 1 GM in Premix Bag 1 BAG IVPB SCH ×3 (05:10→17:12)
[2021-06-16] MEDS: Aspirin 81 mg Enteric Coated Tablet PO SCH ×2 (08:37→20:56)
[2021-06-16] MEDS: cefTRIAXone\\ROCEPHIN 2 GM in Sodium Chloride 0.9% 100 ML IVPB SCH (08:38)
[2021-06-16] MEDS: traMADol HCl 50 MG TAB PO PRN (08:47)
[2021-06-17] MEDS: traMADol HCl 50 MG TAB PO PRN ×3 (00:53→20:42)
[2021-06-17] MEDS: Vancomycin 1 GM in Premix Bag 1 BAG IVPB SCH (00:54)
[2021-06-17] MEDS: HYDROcodone/Acetaminophen 10/325 mg Tablet PO PRN ×3 (10:05→17:11)
[2021-06-17] MEDS: cefTRIAXone\\ROCEPHIN 2 GM in Sodium Chloride 0.9% 100 ML IVPB SCH ×2 (10:05→10:10)
[2021-06-17] MEDS: Aspirin 81 mg Enteric Coated Tablet PO SCH ×2 (10:07→20:42)
[2021-06-18] MEDS: HYDROcodone/Acetaminophen 10/325 mg Tablet PO PRN ×3 (01:15→18:22)
[2021-06-18] MEDS: Aspirin 81 mg Enteric Coated Tablet PO SCH ×2 (08:39→20:11)
[2021-06-18 18:56] LABS: SARS-CoV-2 PCR by NAA Not Detected (NotDetected)
[2021-06-18] MEDS: Morphine 4 MG/ML VIAL SLOW IVP PRN (20:12)
[2021-06-19] MEDS: HYDROcodone/Acetaminophen 10/325 mg Tablet PO PRN ×2 (00:02→15:12)
[2021-06-19] MEDS: traMADol HCl 50 MG TAB PO PRN (06:43)
[2021-06-19] MEDS: Aspirin 81 mg Enteric Coated Tablet PO SCH (08:49)
[2021-06-19 10:13] VITALS: BP 100/66; TEMP 97.9
[2021-06-19] MEDS ORDERED: cefTRIAXone\\ROCEPHIN 2 GM in Sodium Chloride 0.9% 100 ML IVPB SCH (14:45)
== END 2021-06-19 18:45 | disposition home or self-care (01) | DRG 470 ==
LOC: ERS 21:55 → MSONC 06-12 00:28
PROVIDERS: ADMIT Orthopaedic Surgery; ATTEND Orthopaedic Surgery
PROC: 0SRR0J9 Replacement of Right Hip Joint, Femoral Surface with Synthetic Substitute, Cemented, Open Approach (ICD-10-PCS; principal; 2021-06-12)
PROC: 0QP604Z Removal of Internal Fixation Device from Right Upper Femur, Open Approach (ICD-10-PCS; 2021-06-12)
PROC: 30233N1 Transfusion of Nonautologous Red Blood Cells into Peripheral Vein, Percutaneous Approach (ICD-10-PCS; 2021-06-13)
PROC: 02HV33Z Insertion of Infusion Device into Superior Vena Cava, Percutaneous Approach (ICD-10-PCS; 2021-06-17)
PROC: B5181ZA Fluoroscopy of Superior Vena Cava using Low Osmolar Contrast, Guidance (ICD-10-PCS; 2021-06-17)
PROC: B548ZZA Ultrasonography of Superior Vena Cava, Guidance (ICD-10-PCS; 2021-06-17)
DX: T84.620A Infection and inflammatory reaction due to internal fixation device of right femur, initial encounter (principal); M86.8X6 Other osteomyelitis, lower leg; Y83.1 Surgical operation with implant of artificial internal device as the cause of abnormal reaction of the patient, or of later complication, without mention of misadventure at the time of the procedure; Z20.822 Contact with and (suspected) exposure to COVID-19; Z79.899 Other long term (current) drug therapy; S72.001G Fracture of unspecified part of neck of right femur, subsequent encounter for closed fracture with delayed healing; V49.9XXD Car occupant (driver) (passenger) injured in unspecified traffic accident, subsequent encounter
CPT/HCPCS: 36415; 36430; 36569; 80053; 80202; 82805; 85025; 86850; 86900; 86901; 87070; 87205; 96374; 96375; C1713; C1751; C1776; J0696; J1100; J1170; J1644; J1885; J2250; J2270; J2370; J2405; J2704; J3010; J3260; J3370; J3490; J7050; P9016; U0003; U0005